=== PATIENT | female | born 1985 | race African-American/Black ===

== ENCOUNTER 2016-04-05 19:35 | Emergency (ER) | payer BC, OTHER ==
[~2016-04-05] VITALS: Ht 160 cm; Wt 104.2 kg
[~2016-04-05 19:35] MED LIST: PERC5TAB12 PO; PRENTAB62 PO
[2016-04-05 19:38] VITALS: BP 153/91; PULSE 89; RESP 16; TEMP 97.9; O2SAT 96
[2016-04-05] MEDS ORDERED: PRED-503 PO (21:23)
[2016-04-05] MEDS ORDERED: ALBU6.7H INH (21:23)
--- NOTE | 2016-04-05 21:29 | PD ---
HPI Chief Complaint: Cold / Flu Symptoms Time Seen by Provider: 21:24 Travel History International Travel<30 days: No Contact w/Intl Traveler<30days: No Traveled to known affect area: No History of Present Illness HPI 30-year-old black female presents to emergency Department with complaints of shortness of breath and cough. She states that she had a cold 2 weeks ago which had consisted of fever and chills, runny nose, cough and congestion. She states that this seemed to improve but now she has had worsening cough and shortness of breath. She does admit to yellowish sputum production. She denies any nausea vomiting. No abdominal pain or diarrhea. No dysuria or frequency. No leg swelling. She does not smoke. She does drink on occasion. [facility] Past Medical History Narrative Medical sEASONAL ALLERGIES Immunizations Current: Yes Tetanus Vaccination: < 5 Years Influenza Vaccination: Yes ?: Not LMP: CONTROL Social History Alcohol Use: No Tobacco Use: No Substance Use: No Allergies-Medications (Allergen,Severity, Reaction): Coded Allergies: No Known Allergies (Verified , 04/05/16) Reported Meds & Prescriptions Reported Meds & Active Scripts Active Proventil Hfa 6.7 GM Inh (Albuterol Sulfate) 90 Mcg/Act Aer 2 Puff INH Q4-6H PRN Deltasone (Prednisone) 20 Mg Tab 20 Mg PO TID Review of Systems Except as stated in HPI: all other systems reviewed are Neg Physical Exam Narrative GENERAL: Well-developed, well-nourished in no acute distress. Nontoxic appearing. HEAD: Normocephalic, atraumatic. EYES: Pupils equal round and reactive. Extraocular motions intact. No scleral icterus. No injection or drainage. ENT: TMs clear without erythema. The external auditory canals clear. Nose: clear . Posterior pharynx is pink and moist. No tonsillar edema or exudate. Uvula midline. Airway patent. NECK: Trachea midline.Supple, nontender, moves head freely. No central bony tenderness or spasm. CARDIOVASCULAR: Regular rate and rhythm without murmurs, gallops, or rubs. RESPIRATORY: Few rhonchi with fine except for a wheeze. No Rales. No respiratory distress. GASTROINTESTINAL: Abdomen soft, non-tender, nondistended. No hepato-splenomegaly , or palpable masses. No guarding. EXTREMITIES: No clubbing, cyanosis, or edema. No joint tenderness, effusion, or edema noted. BACK: Nontender without deformity or crepitance. No flank tenderness. Data Data Last Documented VS Vital Signs Date Time Temp Pulse Resp B/P Pulse Ox O2 Delivery O2 Flow Rate FiO2 04/05/16 21:04 16 04/05/16 19:38 97.9 89 153/91 96 Room Air Orders Prednisone (Deltasone) (04/05/16 21:30) Albuterol Neb (Albuterol Neb) (04/05/16 21:30) MDM Medical Decision Making Medical Screen Exam Complete: Yes Emergency Medical Condition: Yes Medical Record Reviewed: Yes Differential Diagnosis MDM: High Differential diagnoses: Pneumonia, bronchitis, URI, asthma, RAD, legionnaire's disease, SARS, ARDS, influenza, bronchiolitis, RSV,PE,CHF Narrative Course Patient is given prednisone 80 mg by mouth and 2 albuterol treatments. Patient is reexamined. She has had improvement of her shortness of breath. She is resting comfortable. Lungs are clear. This is bronchitis, reactive airway disease Diagnosis Primary Impression: Bronchitis Additional Impression: Reactive airway disease Qualified Code: J45.21 - Reactive airway disease, mild intermittent, with acute exacerbation Patient Instructions: General Instructions Departure Forms: School Release Please excuse from school until (free text option): No school 1-2 days. Med/Other Pt SpecificInfo: Prescription(s) given Scripts Albuterol 6.7 GM Inh (Proventil Hfa 6.7 GM Inh)90 Mcg/Act Aer2 Puff INH Q4-6H PRN (SHORTNESS OF BREATH) #1 INHALER Prov:Naa Conroy DO 04/05/16 Prednisone (Deltasone)20 Mg Tab20 Mg PO TID #15 TAB Prov:Naa Conroy DO 04/05/16 Disposition: 01 DISCHARGE HOME Condition: Stable [place] Lamas Apr 05, 2016 21:29
[2016-04-05] MEDS ORDERED: predniSONE 20 MG TAB PO ONE (21:30)
[2016-04-05] MEDS: RESP: ALBUTEROL 2.5 MG/3 ML NEB (SCH) INH (21:34)
== END 2016-04-05 22:03 | disposition home or self-care (01) ==
LOC: NEPB 19:35
DX: J45.21 Mild intermittent asthma with (acute) exacerbation (principal)
CPT/HCPCS: 94640; 94664; 99283; J7512; J7613